=== PATIENT | female | born 1970 | race Caucasian/White ===

== ENCOUNTER 2023-10-15 14:11 | Emergency (ER) | payer OTHER, SELFPAY ==
[2023-10-15 14:17] VITALS: BP 169/75; PULSE 59; RESP 16; TEMP 36.1; O2SAT 100; BMI 25.7
--- NOTE | 2023-10-15 14:20 | DI.RAD.S_ITS ---
PROCEDURE: XR ANKLE RT MIN 3V INDICATIONS: ankle injury TECHNIQUE: 3 views of the ankle were acquired. COMPARISON: None. FINDINGS: Bones: Minimally displaced distal fibular fracture. Soft tissues: Lateral malleolar edema. Achilles tendon appears normal. IMPRESSION: Minimally displaced distal fibular fracture. Dictated by: Mago Lay M.D. on 10/15/2023 at 14:48 Approved by: Mago Lay M.D. on 10/15/2023 at 14:48
--- NOTE | 2023-10-15 14:37 | ED.LOWEXIN ---
HPI - Extremity Injury (Lower) <Anibal Montgomery PA-C - Last Filed: 10/15/23 15:48> General Chief Complaint: Extremity Injury, Lower Stated Complaint: broke rt ankle Time Seen by Provider: 10/15/23 14:25 Source: patient Mode of arrival: Wheelchair History of Present Illness HPI Narrative: This is a 53-year-old female presents emergency department due to acute right ankle pain. Patient was walking and she rolled her ankle injured her right ankle. She states that it bent inward. She denies any numbness in her foot. States she was significant pain which limits her range of motion. Did not injure her right knee, hip, did not hit her head. Not on blood thinners. Also lightly hit her right elbow. Related Data Previous Rx's Medication Instructions Recorded oxycodone 5 mg capsule 5 mg PO BID PRN pain #20 caps 10/15/23 oxycodone 5 mg capsule 5 mg PO Q6H PRN pain #20 caps 10/15/23 oxycodone 5 mg tablet 5 mg PO Q6H PRN pain #20 tabs 10/15/23 Allergies Allergy/AdvReac Type Severity Reaction Status Date / Time No Known Drug Allergies Allergy Verified 10/15/23 14:17 Review of Systems <MAURICE Garduno Last Filed: 10/15/23 15:48> Review of Systems Narrative: GENERAL: Denies chills, fatigue, malaise, fever, sweats. HEENT: Denies sinus pain, ear pain, sore throat, difficulty swallowing, dizziness. RESPIRATORY: Denies dyspnea, cough, wheezing, hemoptysis, sputum. CARDIOVASCULAR: Denies chest pain, palpitations, orthopnea, edema, GASTROINTESTINAL: Denies nausea, vomiting, abdominal pain, diarrhea, constipation, melena. : Denies dysuria, frequency, incontinence, hematuria, urinary retention. MUSCULOSKELETAL: Right ankle pain, very mild right elbow pain SKIN: Denies rash, skin lesions, or other NEUROLOGIC: Denies weakness, headache, numbness, change in speech, confusion, seizures, incoordination. PSYCHIATRIC: No concerning psychosocial issues. 12 point review of systems is negative except for those stated above Patient History <MAURICE Garduno Last Filed: 10/15/23 15:48> Social History Smoking Status: Unknown if ever smoked Smoking Status: Unknown if ever smoked alcohol intake frequency: holidays/special occasions only Substance Use Type: does not use Exam <MAURICE Garduno Last Filed: 10/15/23 15:48> Narrative Exam Narrative: GENERAL: Well-developed patient, in mild distress. HEAD: Atraumatic. Normocephalic. EYES: Pupils equal round and reactive. Extraocular motions intact. No scleral icterus. No injection or drainage. ENT: Nose without bleeding, purulent drainage. Throat without erythema, tonsillar hypertrophy or exudate. Airway patent. NECK: Trachea midline. Non tender EXTREMITIES: Tenderness to palpation to the lateral malleolus of the right ankle, 2+ dorsalis pedis pulse. Neurovascularly intact throughout. Mild tenderness to palpation to the right elbow as well. Range of motion of the ankle decreased secondary to pain. NEURO: AOx3. SKIN: No rash or erythema of visible areas Initial Vital Signs Initial Vital Signs: Vital Signs Temperature 97.0 F L 10/15/23 14:17 Pulse Rate 59 L 10/15/23 14:17 Respiratory Rate 16 10/15/23 14:17 Blood Pressure 169/75 H 10/15/23 14:17 Pulse Oximetry 100 10/15/23 14:17 Oxygen Delivery Method Room Air 10/15/23 14:17 <Libia Biggs DO - Last Filed: 10/15/23 19:04> Initial Vital Signs Initial Vital Signs: Vital Signs Temperature 97.0 F L 10/15/23 14:17 Pulse Rate 59 L 10/15/23 14:17 Respiratory Rate 16 10/15/23 14:17 Blood Pressure 169/75 H 10/15/23 14:17 Pulse Oximetry 100 10/15/23 14:17 Oxygen Delivery Method Room Air 10/15/23 14:17 Procedures <MAURICE Garduno Last Filed: 10/15/23 15:48> Orthopedic Splinting/Casting Injury #1: Time of procedure: 15:27 Side: right Lower Extremity Injury Location: ankle Lower Extremity Immobilizer: posterior splint Post splinting neuro exam: intact Post splinting vascular exam: intact Placed by: Nursing Course <MAURICE Garduno Last Filed: 10/15/23 15:48> Orders Ordered: ED Orders 10/15/23 14:20 XR ankle RT min 3V Stat Discontinued Medications Hydrocodone Bitart/Acetaminophen (Hydrocodone/Acet 5/325 Tablet) 1 tab PO NOW ONE Stop: 10/15/23 14:47 Last Admin: 10/15/23 14:58 Dose: 1 tab Documented By: NICOLASA Vital Signs Vital signs: Vital Signs - 8 hr 10/15/23 14:17 10/15/23 16:27 Temperature 97.0 F L Pulse Rate 59 L 55 L Respiratory Rate 16 Blood Pressure 169/75 H 130/68 Pulse Oximetry 100 97 Oxygen Delivery Method Room Air Room Air <Libia Biggs DO - Last Filed: 10/15/23 19:04> Orders Ordered: ED Orders 10/15/23 14:20 XR ankle RT min 3V Stat Discontinued Medications Hydrocodone Bitart/Acetaminophen (Hydrocodone/Acet 5/325 Tablet) 1 tab PO NOW ONE Stop: 10/15/23 14:47 Last Admin: 10/15/23 14:58 Dose: 1 tab Documented By: NICOLASA Vital Signs Vital signs: Vital Signs - 8 hr 10/15/23 14:17 10/15/23 16:27 Temperature 97.0 F L Pulse Rate 59 L 55 L Respiratory Rate 16 Blood Pressure 169/75 H 130/68 Pulse Oximetry 100 97 Oxygen Delivery Method Room Air Room Air MDM - Extremity Injury (Lower) <Anibal Montgomery PA-C - Last Filed: 10/15/23 15:48> MDM Narrative Medical decision making narrative: ED course: This is a 53-year-old female presents to the emergency department due to acute onset right ankle pain. X-ray showed a minimally displaced fracture of the distal fibula. Patient was placed in a posterior short-leg splint with stirrups without complications. Patient was follow up with Dr. Escudero, orthopedist for outpatient follow up. She was neurovascularly intact throughout the course of the counter. CC: Ankle pain Complicating co-morbidities: None Data collected from: Previous notes Medical records reviewed: Patient was not been to this emergency department the past. Differential considered, but not limited to: Fracture, dislocation, sprain, neurovascular injury Exam documented above, pertinent findings include: Neurovascularly intact throughout Lab Test results independently reviewed as above. Pertinent findings: None obtained Imaging studies independently reviewed: X-ray showed minimally displaced fracture of the distal fibula Scores Used: None MIPS Elements: None Consultations: None Treatments: Posterior short-leg splint with stirrups, [place] for pain control Re-evaluations: None Discussion: Discussed plan with the patient was comfortable with the plan Diagnosis: Distal fibula fracture Disposition: see below, along with detailed discharge instructions that have been reviewed with patient as well as indications for ED re-evaluation and additional outpatient follow up Discharge Plan Departure Patient Disposition: Home Clinical Impression: Fracture of distal end of fibula Instructions: DI for Fracture Activity Restrictions/Additional Instructions: Thank you for coming to the [facility] Emergency Department today. Please use the crutches to remain nonweightbearing and follow up with Dr. Escudero's office next week. Please use Tylenol as needed for pain control but you may use the oxycodone for breakthrough pain. Please return to the emergency department if you develop any significant numbness or pain or any other concerning signs or symptoms. I hope you feel better soon. Please follow up with your primary care provider within a week if your symptoms continue. If you do not have a primary care provider please contact the [facility] Resource line at [phone]. They will ask some questions about your medical history and help you get set up with a provider in the community. Prescriptions: New oxycodone 5 mg capsule 5 mg PO Q6H PRN (Reason: pain) Qty: 20 0RF oxycodone 5 mg tablet 5 mg PO Q6H PRN (Reason: pain) Qty: 20 0RF oxycodone 5 mg capsule 5 mg PO BID PRN (Reason: pain) Qty: 20 0RF Referrals: Pasha Escudero MD [Physician] - (f/u R distal fibula fracture, thank you! ) Stand Alone Forms: Patient Portal/API ED Sign-out <Libia Biggs DO - Last Filed: 10/15/23 19:04> Cosign ED Attending Mónica Attestation: I was immediately available in the department for consultation. Images reviewed. Agree with plan.
[2023-10-15] MEDS: HYDROCODONE/ACET 5/325 TABLET 1 TAB PO (14:58)
--- NOTE | 2023-10-15 16:15 | PC.NURSE ---
stirrup and posterior orthoglass applied.
[2023-10-15 16:27] VITALS: BP 130/68; PULSE 55; O2SAT 97
== END 2023-10-15 16:27 | disposition home or self-care (01) ==
PROVIDERS: Emergency Provider Physician Assistant Medical
DX: S82.831A Other fracture of upper and lower end of right fibula, initial encounter for closed fracture (principal); X50.1XXA Overexertion from prolonged static or awkward postures, initial encounter; Y93.01 Activity, walking, marching and hiking
CPT/HCPCS: 29515; 73610; 99283